=== PATIENT | male | born 1980 | race Caucasian/White ===

== ENCOUNTER → 2018-12-08 | Outpatient (CLI) | payer OTHER ==
--- NOTE | 2018-12-08 13:16 | REP ---
Chest x-ray: Two views. History: Cough. Findings: The lungs are symmetrically aerated and clear. The pleural angles are sharp. Cardiomediastinal silhouette is unremarkable. No bony abnormality is appreciated. No significant change from the September 27, 2014 prior study. Impression: No active disease. Electronically Signed by Conor Walsh MD 12/08/2018 01:08 P
== END ==
LOC: M WUC 12:48
PROVIDERS: ATTEND Physician Assistant
DX: R05 Cough (principal)

== ENCOUNTER 2023-05-19 12:47 | Emergency (ER) | payer OTHER ==
[~2023-05-19] VITALS: Ht 180.3 cm; Wt 104.5 kg
[2023-05-19 12:48] VITALS: BP 142/82; TEMP 98.3; O2SAT 100
== END 2023-05-19 15:41 | disposition home or self-care (01) ==
LOC: M ED 12:47
DX: S93.401A Sprain of unspecified ligament of right ankle, initial encounter (principal); X50.1XXA Overexertion from prolonged static or awkward postures, initial encounter; Y92.009 Unspecified place in unspecified non-institutional (private) residence as the place of occurrence of the external cause; Z88.0 Allergy status to penicillin; Z88.1 Allergy status to other antibiotic agents

== ENCOUNTER 2025-05-04 09:33 | Day surgery (SDC) | payer OTHER ==
[~2025-05-04] VITALS: Ht 180.3 cm; Wt 101.6 kg
[~2025-05-04 09:33] MED LIST: ZYZAL PO
[2025-05-04] MEDS ORDERED: IBUP200T46 PO (10:01)
[2025-05-04 10:45] VITALS: TEMP 97.4
[2025-05-04 11:05] VITALS: BP 132/85; O2SAT 95
== END 2025-05-04 11:15 | disposition home or self-care (01) ==
LOC: M OPP 09:33
PROVIDERS: ATTEND Surgery
DX: Z12.11 Encounter for screening for malignant neoplasm of colon (principal); Z83.719 Family history of colon polyps, unspecified; Z88.0 Allergy status to penicillin; Z88.1 Allergy status to other antibiotic agents; Z79.899 Other long term (current) drug therapy